=== PATIENT | female | born 1960 | race Caucasian/White ===

== ENCOUNTER 2016-08-29 09:58 | Inpatient (IN) | payer OTHER ==
[~2016-08-29] VITALS: Ht 157.5 cm; Wt 70.0 kg
[~2016-08-29 09:58] MED LIST: ACET-66 PO; CALC-879 PO; FLAX10002 PO; PROPOFOL 1000 MG/ISO-OSM 100 ML IV ONE; RINGERS SOLUTION,LACTATED 1,000 ML IV ONE
[2016-08-29] MEDS ORDERED: BENZOCAINE/MENTHOL LOZENGE [8 LOZENGES/PACKET] PO PRN (10:15)
[2016-08-29] MEDS ORDERED: ONDANSETRON HCL 4 MG/2 ML VIAL IVP PRN ×2 (10:15→11:30)
[2016-08-29] MEDS ORDERED: BISACODYL 10 MG RECTAL RECTAL SUPPOSITORY PR PRN (10:15)
[2016-08-29] MEDS ORDERED: TRANEXAMIC ACID 1,000 MG in DEXTROSE 5%-WATER 50 ML IV ONE (10:45)
[2016-08-29] MEDS ORDERED: ACETAMINOPHEN 1000 MG/ISO-OSM 100 ML IV ONE (10:45)
[2016-08-29] MEDS ORDERED: BUPIVACAINE LIPOSOME/PF 1.3%-13.3MG/ML SUSPENSION 20 ML VIAL INJ ONE (10:45)
[2016-08-29] MEDS ORDERED: SODIUM CHLORIDE 0.9% 100 ML ONE (10:47)
[2016-08-29] MEDS ORDERED: BACITRACIN 50,000 UNITS/VIAL IRRIG ONE (11:09)
[2016-08-29] MEDS ORDERED: HYDROmorphone 2 MG/ML SYRINGE IVP PRN (11:30)
[2016-08-29] MEDS ORDERED: FentaNYL CITRATE-PF 100 MCG/2 ML VIAL IVP PRN (11:30)
[2016-08-29] MEDS ORDERED: KETOROLAC TROMETHAMINE 30 MG/ML VIAL IVP PRN (11:30)
[2016-08-29] MEDS ORDERED: MEPERIDINE-PF 25 MG/ML SYRINGE IVP PRN (11:30)
[2016-08-29] MEDS ORDERED: OXYGEN THERAPY IH SCH (11:30)
[2016-08-29] MEDS: CYCLOBENZAPRINE HCL 10 MG TABLET PO SCH ×2 (12:00→18:07)
[2016-08-29 13:54] VITALS: BP 143/81
[2016-08-29 13:55] VITALS: BP 143/81
[2016-08-29] MEDS ORDERED: MAGNESIUM HYDROXIDE SUSPENSION 30 ML UDCUP PO PRN (14:00)
[2016-08-29] MEDS: HYDROmorphone 2 MG/ML SYRINGE IVP PRN ×2 (15:28→20:16)
[2016-08-29 15:57] VITALS: BP 128/76
[2016-08-29] MEDS ORDERED: PNEUMOCOCCAL VACCINE POLYVALENT 0.5 ML VIAL [PPSV23] IM ONE (16:00)
[2016-08-29] MEDS: ACETAMINOPHEN 1000 MG/ISO-OSM 100 ML IV SCH ×2 (17:19→23:20)
[2016-08-29] MEDS: CeFAZolin 1 GM/DEXTROSE 50 ML IV SCH (18:07)
[2016-08-29] MEDS: OXYGEN THERAPY IH SCH (20:00)
[2016-08-29 20:15] VITALS: BP 112/59
[2016-08-29] MEDS: DOCUSATE SODIUM 100 MG CAPSULE PO SCH ×2 (20:16)
[2016-08-29] MEDS: ZOLPIDEM TARTRATE 5 MG TABLET PO SCH (21:00)
[2016-08-29] MEDS ORDERED: FentaNYL CITRATE-PF 100 MCG/2 ML VIAL IVP ONE (22:40)
[2016-08-29] MEDS ORDERED: DEXAMETHASONE SOD PHOS 4 MG/ML VIAL IVP ONE (22:40)
[2016-08-29] MEDS ORDERED: ONDANSETRON HCL 4 MG/2 ML VIAL IVP ONE (22:40)
[2016-08-29] MEDS ORDERED: KETOROLAC TROMETHAMINE 60 MG/2 ML VIAL IM ONE (22:40)
[2016-08-29] MEDS ORDERED: MIDAZOLAM HCL 2 MG/2 ML VIAL IVP ONE (22:40)
[2016-08-29] MEDS: SODIUM CHLORIDE 0.9% 1,000 ML IV SCH (23:34)
[2016-08-30] VITALS (7 sets, daily range): BP systolic 111–178; BP diastolic 59–85
[2016-08-30] MEDS: SODIUM CHLORIDE 0.9% 1,000 ML IV SCH (00:02)
[2016-08-30] MEDS: CYCLOBENZAPRINE HCL 10 MG TABLET PO SCH ×4 (00:09→17:14)
[2016-08-30] MEDS: HYDROmorphone 2 MG/ML SYRINGE IVP PRN ×6 (01:12→21:51)
[2016-08-30] MEDS: CeFAZolin 1 GM/DEXTROSE 50 ML IV SCH (01:41)
[2016-08-30] MEDS: ACETAMINOPHEN 1000 MG/ISO-OSM 100 ML IV SCH ×2 (05:00→11:34)
[2016-08-30] MEDS: DiphenhydrAMINE HCL 50 MG/ML VIAL IVP PRN ×2 (05:08→15:44)
[2016-08-30 06:21] LABS: BASOPHILS # (AUTO) 0.02 K/uL (0.00-0.20); BASOPHILS % (AUTO) 0.2 % (0.0-2.0); EOSINOPHILS % (AUTO) 0.02 % (1.0-6.0); HEMATOCRIT 34.3 % (36-46); HEMOGLOBIN 11.7 g/dL (12.0-16.0); LYMPHOCYTES # (AUTO) 1.8 K/uL (1.0-4.8); LYMPHOCYTES % (AUTO) 12.9 % (22.0-44.0); MEAN CORPUSCULAR HEMOGLOBIN 30.7 pg (26.0-34.0); MEAN CORPUSCULAR VOLUME 90 fL (80-100); MONOCYTES # (AUTO) 0.8 K/uL (0.1-1.0); MONOCYTES % (AUTO) 5.3 % (2.0-9.0); NEUTROPHILS # (AUTO) 11.7 K/uL (1.8-7.7); NEUTROPHILS % (AUTO) 81.6 % (40.0-70.0); PLATELET COUNT (AUTO) 254 K/uL (150-450); RED BLOOD CELL COUNT(AUTO) 3.79 MIL/uL (4.00-5.20); RED CELL DISTRIBUTION WIDTH 14.1 % (11.5-14.5); WHITE BLOOD COUNT (AUTO) 14.3 K/uL (4.5-11.0)
[2016-08-30 06:22] LABS: ANION GAP 11 mmol/L (8-16); CALCIUM, TOTAL 8.4 mg/dL (8.8-10.5); CARBON DIOXIDE 25 mmol/L (22-29); CHLORIDE 102 mmol/L (98-107); CREATININE 0.69 mg/dL (0.60-1.30); GLOMERULAR FILTR. RATE CALC > 60 mL/min (>60); SODIUM SERUM 138 mmol/L (136-145); UREA NITROGEN, BLOOD 14 mg/dL (7-18)
[2016-08-30] MEDS: OXYGEN THERAPY IH SCH ×2 (08:00→20:00)
[2016-08-30] MEDS: DOCUSATE SODIUM 100 MG CAPSULE PO SCH ×2 (08:14→09:00)
[2016-08-30] MEDS: PANTOPRAZOLE SODIUM 40 MG DR TABLET PO SCH (08:15)
[2016-08-30] MEDS: RIVAROXABAN 10 MG TABLET PO SCH ×2 (11:00→17:13)
[2016-08-30] MEDS ORDERED: ACETAMINOPHEN 325 MG TABLET PO PRN (17:00)
[2016-08-30] MEDS ORDERED: AmLODIPine BESYLATE 10 MG TABLET PO ONE (20:00)
[2016-08-30] MEDS: ZOLPIDEM TARTRATE 5 MG TABLET PO SCH ×2 (20:30→20:34)
[2016-08-30] MEDS: OxyCODONE HCL/ACETAMINOPHEN 10-325 MG TABLET PO PRN (20:31)
[2016-08-30] MEDS ORDERED: 0.9% SODIUM CHLORIDE 10 ML SYRINGE IVP PRN (21:00)
[2016-08-31] VITALS (7 sets, daily range): BP systolic 102–163; BP diastolic 69–86
[2016-08-31] MEDS: CYCLOBENZAPRINE HCL 10 MG TABLET PO SCH ×4 (00:11→17:32)
[2016-08-31] MEDS: DiphenhydrAMINE HCL 50 MG/ML VIAL IVP PRN (00:11)
[2016-08-31] MEDS: HYDROmorphone 2 MG/ML SYRINGE IVP PRN (02:09)
[2016-08-31 07:43] LABS: BASOPHILS % (AUTO) 0.2 % (0.0-2.0); EOSINOPHILS % (AUTO) 0.8 % (1.0-6.0); HEMATOCRIT 36.9 % (36-46); HEMOGLOBIN 12.2 g/dL (12.0-16.0); LYMPHOCYTES % (AUTO) 22.8 % (22.0-44.0); MEAN CORPUSCULAR HEMOGLOBIN 30.1 pg (26.0-34.0); MEAN CORPUSCULAR VOLUME 91 fL (80-100); MONOCYTES # (AUTO) 0.9 K/uL (0.1-1.0); MONOCYTES % (AUTO) 6.9 % (2.0-9.0); NEUTROPHILS # (AUTO) 9.2 K/uL (1.8-7.7); NEUTROPHILS % (AUTO) 69.3 % (40.0-70.0); PLATELET COUNT (AUTO) 249 K/uL (150-450); RED BLOOD CELL COUNT(AUTO) 4.04 MIL/uL (4.00-5.20); RED CELL DISTRIBUTION WIDTH 13.6 % (11.5-14.5); WHITE BLOOD COUNT (AUTO) 13.2 K/uL (4.5-11.0)
[2016-08-31] MEDS: OXYGEN THERAPY IH SCH ×2 (08:00→20:00)
[2016-08-31] MEDS: AmLODIPine BESYLATE 10 MG TABLET PO SCH (08:34)
[2016-08-31] MEDS: OxyCODONE HCL/ACETAMINOPHEN 10-325 MG TABLET PO PRN ×5 (08:34→23:33)
[2016-08-31] MEDS: DOCUSATE SODIUM 100 MG CAPSULE PO SCH ×2 (08:35→19:37)
[2016-08-31] MEDS: PANTOPRAZOLE SODIUM 40 MG DR TABLET PO SCH (08:35)
[2016-08-31] MEDS: RIVAROXABAN 10 MG TABLET PO SCH (17:32)
[2016-08-31] MEDS: ZOLPIDEM TARTRATE 5 MG TABLET PO SCH (21:00)
[2016-09-01] MEDS: CYCLOBENZAPRINE HCL 10 MG TABLET PO SCH ×3 (00:15→11:35)
[2016-09-01] MEDS: OxyCODONE HCL/ACETAMINOPHEN 10-325 MG TABLET PO PRN ×5 (03:48→15:44)
[2016-09-01 03:55] VITALS: BP 122/71
[2016-09-01 06:04] LABS: BASOPHILS # (AUTO) 0.03 K/uL (0.00-0.20); BASOPHILS % (AUTO) 0.4 % (0.0-2.0); EOSINOPHILS # (AUTO) 0.16 K/uL (0.00-0.70); HEMATOCRIT 33.9 % (36-46); HEMOGLOBIN 11.5 g/dL (12.0-16.0); LYMPHOCYTES # (AUTO) 2.5 K/uL (1.0-4.8); LYMPHOCYTES % (AUTO) 27.1 % (22.0-44.0); MEAN CORPUSCULAR HGB CONC 33.9 G/dL (31.0-37.0); MEAN CORPUSCULAR VOLUME 92 fL (80-100); MONOCYTES # (AUTO) 0.7 K/uL (0.1-1.0); NEUTROPHILS # (AUTO) 5.8 K/uL (1.8-7.7); NEUTROPHILS % (AUTO) 62.8 % (40.0-70.0); PLATELET COUNT (AUTO) 234 K/uL (150-450); RED CELL DISTRIBUTION WIDTH 14.4 % (11.5-14.5); WHITE BLOOD COUNT (AUTO) 9.2 K/uL (4.5-11.0)
[2016-09-01 07:00] VITALS: BP 120/71
[2016-09-01] MEDS: OXYGEN THERAPY IH SCH (08:00)
[2016-09-01] MEDS: AmLODIPine BESYLATE 10 MG TABLET PO SCH (08:12)
[2016-09-01] MEDS: DOCUSATE SODIUM 100 MG CAPSULE PO SCH (08:12)
[2016-09-01] MEDS: PANTOPRAZOLE SODIUM 40 MG DR TABLET PO SCH (08:12)
[2016-09-01 11:00] VITALS: BP 134/72
[2016-09-01 15:00] VITALS: BP 119/66
== END 2016-09-01 16:10 | DRG 302 ==
LOC: 4E 09:58
PROVIDERS: ADMIT Orthopaedic Surgery; ATTEND Orthopaedic Surgery
PROC: 0SRD0J9 Replacement of Left Knee Joint with Synthetic Substitute, Cemented, Open Approach (ICD-10-PCS; principal; 2016-08-29 12:30)
PROC: 3E0234Z Introduction of Serum, Toxoid and Vaccine into Muscle, Percutaneous Approach (ICD-10-PCS; 2016-08-30)
DX: M17.12 Unilateral primary osteoarthritis, left knee (principal); I10 Essential (primary) hypertension; Z53.29 Procedure and treatment not carried out because of patient's decision for other reasons; E78.5 Hyperlipidemia, unspecified; Z96.651 Presence of right artificial knee joint; Z90.710 Acquired absence of both cervix and uterus; Z82.49 Family history of ischemic heart disease and other diseases of the circulatory system; Z79.899 Other long term (current) drug therapy
CPT/HCPCS: 87081; 88300; 90471; 93005; 97110; 97116; 97162; 97165; 97530; 97535; C9290; G0238; J0131; J0690; J1100; J1170; J1200; J1885; J2250; J2405; J2704; J3010; J3490; J7050; J7060; J7120